=== PATIENT | female | born 1960 | race Caucasian/White ===

== ENCOUNTER 2016-08-08 22:13 | Emergency (ER) | payer OTHER ==
[~2016-08-08] VITALS: Ht 154.9 cm; Wt 107.5 kg
[2016-08-08 22:40] VITALS: BP 122/61
[2016-08-08] MEDS ORDERED: OMEPRAZOLE20 M3 PO (23:32)
[2016-08-08] MEDS ORDERED: VASOTEC10 MG PO (23:32)
[2016-08-08] MEDS ORDERED: GLUCOTROL5 MG PO (23:32)
[2016-08-08] MEDS ORDERED: ALDACTONE25 MG PO (23:32)
[2016-08-08] MEDS ORDERED: NORCO 10-325 T1 EACH PO (23:32)
[2016-08-08] MEDS ORDERED: RISPERDAL0.5 MG PO (23:32)
[2016-08-08] MEDS ORDERED: ZOCOR20 MG PO (23:32)
[2016-08-08] MEDS ORDERED: COMPAZINE5 M1 PO (23:47)
[2016-08-08] MEDS ORDERED: PEPCID20 MG PO (23:47)
[2016-08-08] MEDS ORDERED: ASPIR 8181 M1 PO (23:47)
[2016-08-08] MEDS ORDERED: ATIVAN0.5 MG PO (23:47)
[2016-08-08] MEDS ORDERED: BUSPAR5 MG PO (23:47)
[2016-08-08] MEDS ORDERED: TRADJENTA5 MG PO (23:47)
[2016-08-08] MEDS ORDERED: ASPIR 8181 MG PO (23:47)
[2016-08-08] MEDS ORDERED: BENADRYL50 MG PO (23:47)
[2016-08-08] MEDS ORDERED: ISOSORBIDE30 MG PO (23:47)
[2016-08-08] MEDS ORDERED: METFORMIN850 MG PO (23:47)
[2016-08-08] MEDS ORDERED: ESTRADIOL0.5 M1 PO (23:47)
[2016-08-08] MEDS ORDERED: TENORMIN25 MG PO (23:47)
[2016-08-08] MEDS ORDERED: ROBAXIN500 M1 PO (23:47)
[2016-08-08] MEDS ORDERED: SYMBICORT1 AE1 IH (23:47)
[2016-08-08] MEDS ORDERED: PAXIL20 MG PO (23:47)
[2016-08-08] MEDS ORDERED: POTASSIUM CHLO10 ME4 PO (23:47)
--- NOTE | 2016-08-09 | NUR ---
DENNIS ANGLIN TO ER OF2
--- NOTE | 2016-08-09 00:02 | NUR ---
Patient being evaluated by physician.
[2016-08-09] MEDS ORDERED: KETOROLAC 60 MG/2 ML VIAL IM ONE (00:05)
[2016-08-09 00:36] VITALS: BP 136/67
--- NOTE | 2016-08-09 00:36 | NUR ---
Patient discharged with v/s stable per Dr Brandon. Written and verbal after care instructions given and explained per Dr Brandon. Patient alert, oriented and verbalized understanding of instructions. Ambulatory with steady gait. All questions addressed prior to discharge per Dr Brandon. ID band removed. Patient advised to follow up with PMD per Dr Brandon. Rx of Naproxe given. Patient educated on indication of medication including possible reaction and side effects per Dr Brandon. Opportunity to ask questions provided and answered per Dr Brandon. D/C note only.
== END 2016-08-09 00:36 | disposition home or self-care (01) ==
LOC: MED 22:13
DX: M25.562 Pain in left knee (principal); Z79.82 Long term (current) use of aspirin; Z88.8 Allergy status to other drugs, medicaments and biological substances
CPT/HCPCS: 73562; 96372; 99284; J1885